=== PATIENT | female | born 1955 | race Caucasian/White ===

== ENCOUNTER 2024-03-21 10:57 | Outpatient (CLI) | payer MEDICARE, SELFPAY ==
--- NOTE | ~2024-03-21 | MR_ITS ---
EXAMINATION: MR shoulder RT wo con DATE: 03/21/2024 11:47 INDICATION: Right shoulder pain. TECHNIQUE: Magnetic resonance imaging (MRI) of the right shoulder was performed without intravenous c ontrast. Sequences included axial PD-weighted FS FSE, coronal oblique PD-weighted FS FSE and T2-weigh kalen FS FSE, and sagittal oblique T2-weighted FS FSE and T1-weighted FSE. COMPARISON: None. FINDINGS: Coracoacromial arch: The acromion undersurface is curved in morphology (type II). There is moderate acromioclavicular join t osteoarthritis. There is severe subacromial/subdeltoid bursitis. Rotator cuff: There is severe supraspinatus tendinopathy. There is an articular-sided partial thickness tear of sup raspinatus tendon measuring 15 mm anterior to posterior by 10 mm proximal to distal by 60% tendon thi ckness. There is mild infraspinatus tendinopathy. Teres minor tendon is normal. There is severe subsc apularis tendinopathy with an articular-sided partial tear. There is no asymmetric fatty atrophy of t he rotator cuff muscle bellies. Biceps tendon and glenoid labrum: Biceps tendon is in bicipital groove. There is a complete tear of biceps tendon. There is tearing of the glenoid labrum. Fluid: There is a moderate-sized glenohumeral joint effusion. Bones/cartilage: There is deep partial-thickness cartilage loss of glenoid and humeral head. IMPRESSION: 1. Articular-sided partial-thickness tears of supraspinatus and subscapular tendons. 2. Moderate glenohumeral joint chondrosis. 3. Moderate acromioclavicular joint osteoarthritis. 4. Complete tear of proximal biceps tendon. 5. Moderate-sized glenohumeral joint effusion. 6. Severe subacromial/subdeltoid bursitis. Reviewed, dictated and finalized at location A. IMPRESSION: 1. Articular-sided partial-thickness tears of supraspinatus and subscapular ten dons. 2. Moderate glenohumeral joint chondrosis. 3. Moderate acromioclavicular joint osteoarthritis. 4. Complete tear of proximal biceps tendon. 5. Moderate-sized glenohumeral joint effusion. 6. Severe subacromial/subdeltoid bursitis.
== END 2024-03-21 10:58 ==
LOC: MICIMG 10:58
PROVIDERS: PCP Physician Assistant; Visit Provider Physician Assistant
DX: M19.011 Primary osteoarthritis, right shoulder (principal); M75.51 Bursitis of right shoulder; M25.411 Effusion, right shoulder; M75.101 Unspecified rotator cuff tear or rupture of right shoulder, not specified as traumatic
CPT/HCPCS: 73221